=== PATIENT | male | born 2000 | race Caucasian/White ===

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

== ENCOUNTER 2019-06-02 15:27 | Emergency (ER) | payer OTHER ==
[2019-06-02] MEDS ORDERED: ONDANSETRON 4 MG/2 ML VIAL IVP STA (16:36)
[2019-06-02] MEDS ORDERED: KETOROLAC 30 MG/ML 1 ML VIAL IM STA (16:36)
--- NOTE | 2019-06-02 16:58 | ED ---
Chest Pain HPI - General Chief Complaint: Chest Pain Stated Complaint: SOB, Nausea, chest pain Time Seen by Provider: 06/02/19 15:40 Source: patient, family Mode of arrival: ambulatory Limitations: no limitations - History of Present Illness Initial Comments: The patient is a 18-year-old male presents to the emergency department with complaint of 5 weeks of chest pain. He describes it as a left-sided chest pain without radiation. It does make him short of breath. States that it is been constant. He denies a ripping or tearing sensation to his back. Denies any unilateral numbness or tingling. He denies a cough, fevers or chills. No hemoptysis. He denies any abdominal pain, nausea or vomiting. No diaphoresis. No previous history of cardiac disease. No history of premature cardiac in family members. Denies any lower extremity swelling. No unilateral calf pain or swelling. Denies chest palpitations. There are no other alleviating, precipitating or modifying factors - Related Data Home Medications Medication Instructions Recorded Confirmed metFORMIN HCL [metFORMIN HCL ER] 500 mg PO DAILY 04/16/17 06/02/19 Venlafaxine HCl [Effexor XR] 37.5 mg PO DAILY 06/02/19 06/02/19 buPROPion HCL [Wellbutrin XL] 300 mg PO DAILY 06/02/19 06/02/19 Allergies Allergy/AdvReac Type Severity Reaction Status Date / Time No Known Allergies Allergy Verified 06/02/19 16:27 Review of Systems ROS Statement: Those systems with pertinent positive or pertinent negative responses have been documented in the HPI. ROS Other: All systems not noted in ROS Statement are negative. EKG Findings - EKG Comments: EKG Findings:: EKG demonstrates a sinus tachycardia with a ventricular rate of 113. NH interval 134. QRS 94. QTC of 438. There are no acute ST segment elevations or depressions concerning for ischemic changes. No signs of [id number]-Fyqjwmzlc-Cgwku or Brugada syndrome Past Medical History Past Medical History: Diabetes Mellitus History of Any Multi-Drug Resistant Organisms: None Reported Past Surgical History: No Surgical Hx Reported Past Anesthesia/Blood Transfusion Reactions: No Reported Reaction Past Psychological History: ADD/ADHD, Anxiety Smoking Status: Current every day smoker Past Drug Use History: None Reported General Exam Limitations: no limitations General appearance: alert, in no apparent distress Head exam: Present: atraumatic, normocephalic, normal inspection Eye exam: Present: normal appearance, PERRL, EOMI. Absent: scleral icterus, conjunctival injection, periorbital swelling ENT exam: Present: normal exam, mucous membranes moist Neck exam: Present: normal inspection. Absent: tenderness, meningismus, lymphadenopathy Respiratory exam: Present: normal lung sounds bilaterally. Absent: respiratory distress, wheezes, rales, rhonchi, stridor Cardiovascular Exam: Present: normal rhythm, tachycardia, normal heart sounds. Absent: systolic murmur, diastolic murmur, rubs, gallop, clicks GI/Abdominal exam: Present: soft, normal bowel sounds. Absent: distended, tenderness, guarding, rebound, rigid Extremities exam: Present: normal inspection, full ROM, normal capillary refill. Absent: tenderness, pedal edema, joint swelling, calf tenderness Back exam: Present: normal inspection Neurological exam: Present: alert, oriented X3, CN II-XII intact Psychiatric exam: Present: normal affect, normal mood Skin exam: Present: warm, dry, intact, normal color. Absent: rash Course Vital Signs 06/02/19 06/02/19 06/02/19 15:38 17:04 18:08 Temperature 98.1 F Pulse Rate 109 H 100 87 Respiratory 18 18 19 Rate Blood Pressure 142/83 123/84 138/74 O2 Sat by Pulse 97 99 99 Oximetry 06/02/19 06/02/19 20:24 21:35 Temperature 98.2 F Pulse Rate 80 76 Respiratory 17 17 Rate Blood Pressure 156/74 150/71 O2 Sat by Pulse 98 99 Oximetry Chest Pain MDM - Differential Diagnosis AMI, ACS, Pleurisy-Other - MDM Upon arrival the patient is placed in room 28. He is hooked up to continuous pulse ox and cardiac monitoring. A thorough history and physical exam was performed. 12 Lead EKG was performed which demonstrates a sinus tachycardia. I did recommend laboratory studies and a chest x-ray. I did provide the patient with 30 mg of Toradol IM and 4 mg of Zofran PO. Upon return of the results I did discuss them with the patient. He does have detectable cardiac enzyme however is within acceptable range. I did discuss the diagnosis, differential and treatment options. I did recommend that the patient states for a second troponin level for which he did agree. He reports that he is completely asymptomatic at this time. Upon review of the second troponin this lab is ad ditionally negative. Patient feels comfortable with discharge and is eager at this time to leave. His mother is at bedside. She does see the [facility]. I did recommend that the patient follow up with them. He will need a full cardiac workup to include an echo as well as possible Holter monitoring. The patient understood this. If he has any new or worsening symptoms he should return to the emergency room. The patient was then discharged home in stable condition Disposition Clinical Impression: Chest pain Disposition: HOME SELF-CARE Condition: Stable Instructions (If sedation given, give patient instructions): Chest Pain (ED) Additional Instructions: You need to follow-up with your primary care physician within one to 2 days. You will also in to be seen by the [facility] and have a full cardiac workup. This includes an ultrasound of your heart and Holter monitoring. Return to the emergency department for any new or worsening symptoms Is patient prescribed a controlled substance at d/c from ED?: No Referrals: Tirso Sutherland MD [Primary Care Provider] - 1-2 days Jose Bermudez MD [STAFF PHYSICIAN] - 1-2 days Time of Disposition: 21:23
[2019-06-02 17:16] LABS: Basophils % (A) 0 %; Eosinophils # (A) 0.1 k/uL (0-0.7); Eosinophils % (A) 1 %; HCT 46.8 % (39.0-53.0); HGB 15.6 gm/dL (13.0-17.5); Lymphocytes # (A) 3.4 k/uL (1.0-4.8); Lymphocytes % (A) 25 %; MCH 28.7 pg (25.0-35.0); MCHC 33.4 g/dL (31.0-37.0); Monocytes # (A) 0.8 k/uL (0-1.0); Monocytes % (A) 6 %; Neutrophils # (A) 9.2 k/uL (1.3-7.7); Neutrophils % (A) 67 %; Platelet Count 343 k/uL (150-450); RBC 5.44 m/uL (4.30-5.90); RDW 13.3 % (11.5-15.5); WBC 13.7 k/uL (4.0-11.0)
--- NOTE | 2019-06-02 17:31 | XR ---
EXAMINATION TYPE: XR chest 2V DATE OF EXAM: 06/02/2019 COMPARISON: NONE HISTORY: Chest pain TECHNIQUE: Frontal and lateral views of the chest are obtained. FINDINGS: Heart and mediastinum are normal. Lungs are clear. Diaphragm is normal. Bony thorax is int act. There are chest leads. IMPRESSION: Normal chest.
[2019-06-02 17:32] LABS: D-Dimer 0.32 mg/L FEU (<0.60); Partial Thromboplastin Time 24.3 sec (22.0-30.0); Prothrombin Time 10.3 sec (9.0-12.0)
[2019-06-02 17:44] LABS: ALT 39 U/L (21-72); AST 27 U/L (17-59); African American GFR (CKD) >90 (>60 ml/min/1.73 sqM); Albumin 4.8 g/dL (3.5-5.0); Alkaline Phosphatase 85 U/L (38-126); Anion Gap 11 mmol/L; Blood Urea Nitrogen 12 mg/dL (9-20); Carbon Dioxide 26 mmol/L (22-30); Chloride 106 mmol/L (98-107); Glucose 83 mg/dL (74-99); Potassium 4.6 mmol/L (3.5-5.1); Sodium 143 mmol/L (137-145); Total Bilirubin 0.4 mg/dL (0.2-1.3); Total Protein 7.5 g/dL (6.3-8.2)
[2019-06-02 20:25] VITALS: RESP 17
[2019-06-02 21:37] VITALS: BP 150/71; PULSE 76; TEMP 98.2
== END 2019-06-02 21:37 | disposition home or self-care (01) ==
LOC: EC 15:27
DX: R07.9 Chest pain, unspecified (principal); R00.0 Tachycardia, unspecified; R06.02 Shortness of breath; E11.9 Type 2 diabetes mellitus without complications; F41.9 Anxiety disorder, unspecified; F17.200 Nicotine dependence, unspecified, uncomplicated; Z79.84 Long term (current) use of oral hypoglycemic drugs; Z79.899 Other long term (current) drug therapy
CPT/HCPCS: 99285; 96374; 96372; 36415; 93005; 85379; 80053; 83690; 83735; 84484; 85025; 85610; 85730; 71046; J2405; J1885

== ENCOUNTER → 2019-06-02 | Outpatient (CLI) | payer OTHER ==
--- NOTE | 2019-06-02 15:37 | XR ---
Left hand, left wrist, left forearm HISTORY: Pain, trauma 2 views of the left forearm, 3 views of the left hand, 4 views of the left wrist Bone mineralization, joint spaces and alignment are maintained. Flexion deformity noted at the fifth digit of the left hand, correlate for possible tendon abnormality. IMPRESSION: No fracture or dislocation of the left hand, wrist, or forearm. Flexion deformity fifth d igit. Correlate for tendon injury.
== END | disposition home or self-care (01) ==
LOC: RADXRMAIN 15:08
PROVIDERS: ATTEND Emergency Medicine
DX: M21.242 Flexion deformity, left finger joints (principal); M79.642 Pain in left hand

== ENCOUNTER → 2019-11-17 | Outpatient (CLI) | payer OTHER ==
--- NOTE | 2019-11-18 02:32 | MR ---
EXAMINATION TYPE: MR wrist LT wo con DATE OF EXAM: 11/17/2019 COMPARISON: None HISTORY: pain in left hand, weakness with ulnar nerve neuropathy Multiplanar multiecho imaging of the left wrist was performed without contrast. Bones appear intact. There is no evidence of edema. I see no bony destructive process. Intercarpal diana int spaces are fairly normal. Distal radius and ulna appear intact. The triangular cartilage appears intact. The proximal metacarpals appear intact. The flexor and extensor tendons of the wrist appear i ntact. I see no pathologic fluid collection. There is no evidence of a soft tissue mass. The collater al ligaments appear intact. IMPRESSION: Negative MR scan of the left wrist. No evidence of ligament or tendon tear. No fracture.
== END | disposition home or self-care (01) ==
LOC: RADMRIMAIN 07:04
PROVIDERS: ATTEND Orthopaedic Surgery
DX: M79.642 Pain in left hand (principal); G56.22 Lesion of ulnar nerve, left upper limb; R53.1 Weakness